=== PATIENT | female | born 1995 | race Hispanic/Latino ===

== ENCOUNTER 2017-03-14 15:33 | Emergency (ER) | payer MEDICAID ==
[2017-03-14 16:51] VITALS: BP 117/72
--- NOTE | 2017-03-14 18:00 | Emergency Department Report ---
Entered by ROMI CARRIZALES, acting as scribe for JOSSIE MONTGOMERY PA. ED ENT HPI - General Chief complaint: Earache Stated complaint: ADILENE/EAR ACHE Source: patient Mode of arrival: Ambulatory Limitations: No Limitations - History of Present Illness Initial comments: 21 year old female that is 41 weeks with a PMHx of asthma, spherocytosis, and endometriosis presents to the ED c/o of a left earache that began this morning. Rates pain a 10/10 in severity. Associated symptoms include nasal congestion and rhinorrhea, but denies fever, sore throat, cough, SOB, nausea, vomiting, chest pain, and abdominal pain. Denies taking OTC medication. Denies any recent swimming. Patient states that she is currently recovering from cold symptoms. NKDA. GARG complaint: ear pain (left) -: Sudden, This morning Location: L ear Severity: moderate Severity scale (0 -10): 10 Quality: aching Consistency: constant Improves with: none Worsens with: none Associated Symptoms: rhinorrhea, other (nasal congestion and wheezing). denies : fever, cough, pain with swallowing, sore throat, discharge from ear - Related Data Previous Rx's Medication Instructions Recorded Last Taken Type Amoxicillin [Amoxicillin TAB] 875 mg PO BID #20 tablet 03/14/17 Unknown Rx Ofloxacin 0.3% [Floxin Otic] 10 drops OT QDAY #1 bottle 03/14/17 Unknown Rx Allergies Allergy/AdvReac Type Severity Reaction Status Date / Time No Known Allergies Allergy Unverified 07/16/16 15:20 ED Dental HPI - General Chief complaint: Earache Stated complaint: ADILENE/EAR ACHE Source: patient Mode of arrival: Ambulatory Limitations: No Limitations - History of Present Illness MD complaint: ear pain (left) -: This morning Severity: moderate Quality: aching Consistency: constant Improves with: none Worsens with: none Dental Associated Symptons: Yes: Earache. No: Headache, Sore Throat, Fever - Related Data Previous Rx's Medication Instructions Recorded Last Taken Type Amoxicillin [Amoxicillin TAB] 875 mg PO BID #20 tablet 03/14/17 Unknown Rx Ofloxacin 0.3% [Floxin Otic] 10 drops OT QDAY #1 bottle 03/14/17 Unknown Rx Allergies Allergy/AdvReac Type Severity Reaction Status Date / Time No Known Allergies Allergy Unverified 07/16/16 15:20 ED Review of Systems Comment: All other systems reviewed and negative Constitutional: denies: chills, fever, other (tingling) ENT: ear pain (left ear pain, but denies ear discharge), congestion, other ( rhinorrhea). denies: throat pain Respiratory: wheezing. denies: cough, orthopnea, shortness of breath, SOB with exertion, SOB at rest, stridor Cardiovascular: denies: chest pain, dyspnea on exertion, orthopnea Gastrointestinal: denies: abdominal pain, nausea, vomiting Skin: denies: rash Neurological: denies: headache, numbness ED Past Medical Hx - Past Medical History Hx Asthma: Yes Additional medical history: spherocytosis. endometriosis - Surgical History Hx Cholecystectomy: Yes Additional Surgical History: splenectomy - Social History Smoking Status: Never Smoker Substance Use Type: None - Medications Home Medications: Home Medications Medication Instructions Recorded Confirmed Last Taken Type Amoxicillin [Amoxicillin TAB] 875 mg PO BID #20 tablet 03/14/17 Unknown Rx Ofloxacin 0.3% [Floxin Otic] 10 drops OT QDAY #1 bottle 03/14/17 Unknown Rx ED Physical Exam - General Limitations: No Limitations General appearance: alert, in no apparent distress - Head Head exam: Present: atraumatic, normocephalic - Eye Eye exam: Present: normal appearance, EOMI Pupils: Present: normal accommodation - ENT ENT exam: Present: normal exam, mucous membranes moist. Absent: TM's normal bilaterally (left TM injected and bulging) - Expanded ENT Exam Expanded Ear exam: Present: normal external inspection TM/Canal exam: Erythema: Left TM, Bulging: Left TM, Canal Discharge: Left TM ( minimal), Canal Tenderness: Left TM (positive tug test) Mouth exam: Present: normal external inspection. Absent: drooling Teeth exam: Present: normal inspection Throat exam: Positive: normal inspection (gravid) - Neck Neck exam: Present: normal inspection, full ROM. Absent: tenderness, lymphadenopathy - Respiratory Respiratory exam: Present: normal lung sounds bilaterally. Absent: respiratory distress, wheezes, rales, rhonchi, stridor - Cardiovascular Cardiovascular Exam: Present: regular rate, normal rhythm. Absent: systolic murmur, diastolic murmur, rubs, gallop - GI/Abdominal GI/Abdominal exam: Present: soft, distended. Absent: tenderness, guarding, rebound - Extremities Exam Extremities exam: Present: normal inspection, full ROM - Back Exam Back exam: Present: normal inspection, full ROM - Neurological Exam Neurological exam: Present: alert, oriented X3 - Psychiatric Psychiatric exam: Present: normal affect, normal mood - Skin Skin exam: Present: warm, dry, intact. Absent: rash ED Course Vital Signs 03/14/17 16:44 Temperature 98.0 F Pulse Rate 82 Respiratory 16 Rate Blood Pressure 117/72 O2 Sat by Pulse 96 Oximetry ED Medical Decision Making - Lab Data Vital Signs 03/14/17 16:44 Temperature 98.0 F Pulse Rate 82 Respiratory 16 Rate Blood Pressure 117/72 O2 Sat by Pulse 96 Oximetry - Medical Decision Making 21-year-old gravid female presents to the left otitis media and externa. Patient is in no acute distress at this time. She will be discharged home and is encouraged to follow up with a primary care provider. She will be sent home on amoxicillin and ofloxacin otic drops and is encouraged to return to the emergency room for any worsening symptoms. ED Disposition Clinical Impression: Otitis media Qualifiers: Otitis media type: serous Laterality: left Chronicity: acute Recurrence: not specified as recurrent Qualified Code(s): H65.02 - Acute serous otitis media, left ear Otitis externa Qualifiers: Otitis externa type: unspecified type Laterality: left Chronicity: acute Qualified Code(s): H60.502 - Unspecified acute noninfective otitis externa, left ear Disposition: DISCHARGED TO HOME OR SELFCARE Is pt being admited?: No Does the pt Need Aspirin: No Condition: Stable Instructions: Otitis Media (ED), Otitis Externa (ED) Additional Instructions: Follow-up with primary care provider. Return to the emergency department if symptoms worsen. Prescriptions: Amoxicillin [Amoxicillin TAB] 875 mg PO BID #20 tablet Ofloxacin 0.3% [Floxin Otic] 10 drops OT QDAY #1 bottle Referrals: PRIMARY CARE,MD [Primary Care Provider] - 3-5 Days [facility] [Outside] - 3-5 Days Forms: Work/School Release Form(ED) Time of Disposition: 17:53 This documentation as recorded by the SOFIE leon JASMINE,accurately reflects the service I personally performed and the decisions made by ,JOSSIE MONTGOMERY PA.
== END 2017-03-14 18:10 | disposition home or self-care (01) ==
LOC: ED 15:33
DX: O26.893 Other specified pregnancy related conditions, third trimester (principal); H65.02 Acute serous otitis media, left ear; H60.502 Unspecified acute noninfective otitis externa, left ear; J45.909 Unspecified asthma, uncomplicated; Z3A.41 41 weeks gestation of pregnancy
CPT/HCPCS: 99282